=== PATIENT | female | born 1985 | race Caucasian/White ===

== ENCOUNTER 2019-12-07 20:51 | Emergency (ER) | payer SELFPAY ==
[~2019-12-07] VITALS: Ht 177.8 cm; Wt 78.6 kg
[2019-12-07 20:58] VITALS: Ht 177.8 cm; Wt 78.6 kg
[2019-12-07] MEDS ORDERED: CELEXA40 MG PO (21:01)
[2019-12-07] MEDS ORDERED: PEPCID AC20 MG PO (21:01)
[2019-12-07 21:32] LABS: BASOPHILS 0.4 % (0-2); EOSINOPHILS 1.9 % (0-7); HEMATOCRIT 40.4 % (36.0-48.0); HEMOGLOBIN 13.8 g/dL (12-16); IMMATURE GRANULOCYTES 0.2 % (0-5); MCH 29.7 pg (26.0-34.0); MCHC 34.2 g/dL (31.0-37.0); MCV 86.9 fL (80.0-100.0); MEAN PLATELET VOLUME 10.1 fL (7.4-10.4); NEUTROPHILS 47.5 % (40-80); PLATELET COUNT 229 10x3/uL (130-400); RBC 4.65 10x6/uL (4.00-5.40); RDW 13.2 % (11.5-14.5); WBC 5.3 10x3/uL (4.8-10.8)
[2019-12-07 21:34] LABS: BILIRUBIN NEGATIVE (NEGATIVE); GLUCOSE NEGATIVE (NEGATIVE); KETONE NEGATIVE (NEGATIVE); NITRITE NEGATIVE (NEGATIVE); UROBILINOGEN NORMAL (NORMAL)
[2019-12-07 21:35] LABS: HCG URINE NEGATIVE (NEGATIVE)
[2019-12-07 21:47] LABS: CALC OSMOLALITY 277 mosm/kg (275-300); CARBON DIOXIDE 28.9 mmol/L (21.0-32.0); CHLORIDE - SERUM 105 mmol/L (98-107); CREATININE - SERUM 0.7 mg/dL (0.6-1.3); GLUCOSE 97 mg/dL (74-106); POTASSIUM - SERUM 3.9 mmol/L (3.5-5.1); SODIUM 140 mmol/L (136-145); UREA NITROGEN 9 mg/dL (7-18); eGFR NON AFRICAN AMERICAN > 90 mL/min (90-120)
[2019-12-07 21:53] LABS: ALBUMIN 4.1 g/dL (3.4-5.0); ALKALINE PHOSPHATASE 84 U/L (30-120); ALT (SGPT) 17 U/L (10-68); BILIRUBIN - TOTAL 0.49 mg/dL (0.2-1.3); LIPASE 81 U/L (73-393); PROTEIN - SERUM 7.3 g/dL (6.4-8.2)
[2019-12-07 22:22] LABS: UDS - AMPHET NEGATIVE QUAL (NEGATIVE); UDS - BARB NEGATIVE QUAL (NEGATIVE); UDS - BENZO NEGATIVE QUAL (NEGATIVE); UDS - COCAINE NEGATIVE QUAL (NEGATIVE); UDS - OPIATE NEGATIVE QUAL (NEGATIVE); UDS - PCP NEGATIVE QUAL (NEGATIVE); UDS - THC NEGATIVE QUAL (NEGATIVE)
--- NOTE | 2019-12-07 22:24 | NUR ---
DR SR NOTIFIED AND REVIEWED PT BEHAVIOR AND ASSESSMENT. PT IS A LOW RISK PER DOCTOR SR. DR SR STATED TO GIVE RESOURCES TO PT AT TIME OF DISCHARGE. NO FURTHER ORDER AT THIS TIME. RESOURCES REVIEWED WITH PT AND SHE VERBALIZED UNDERSTANDING.
[2019-12-08] MEDS ORDERED: CYCLOBENZAPRINE10 MG PO (00:10)
[2019-12-08] MEDS ORDERED: COLACE100 MG PO (01:01)
[2019-12-08] MEDS ORDERED: MIRALAX17 GM PO (01:01)
[2019-12-08 01:13] VITALS: BP 119/62
== END 2019-12-08 01:13 | disposition home or self-care (01) ==
LOC: D.ER 20:51
PROVIDERS: Family Medicine
DX: R10.9 Unspecified abdominal pain (principal); K59.00 Constipation, unspecified; N83.202 Unspecified ovarian cyst, left side